=== PATIENT | male | born 1955 | race Two or more races ===

== ENCOUNTER → 2017-12-21 | Emergency (ER) | payer MEDICAID ==
[~2017-12-21] VITALS: Ht 170.2 cm; Wt 86.2 kg
[~2017-12-21] MED LIST: FUROSEMIDE40 MG ORAL; Morphine Sulfate 4mg/ml Inj (IV USE ONLY) IVP ONE; SPIRONOLACTONE100 MG ORAL; cefTRIAXone 1 GM in NS 55 ML IVPB ONE
[2017-12-21 22:27] VITALS: BP 113/60
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
[2017-12-21 23:09] LABS: EOSINOPHILS % (AUTO) 4.9 % (0.0-3.0); HEMATOCRIT 28.8 % (42.0-52.0); HEMOGLOBIN 9.5 G/DL (14.2-18.0); LYMPHOCYTES % (AUTO) 18.5 % (20.0-45.0); MEAN CORPUSCULAR VOLUME 88 FL (80-99); MONOCYTES % (AUTO) 7.9 % (1.0-10.0); NEUTROPHILS % (AUTO) 66.7 % (45.0-75.0); PLATELET COUNT 284 K/UL (150-450); RED BLOOD COUNT 3.29 M/UL (4.70-6.10); RED CELL DISTRIBUTION WIDTH 17.4 % (11.6-14.8); WHITE BLOOD COUNT 6.5 K/UL (4.8-10.8)
[2017-12-21 23:19] LABS: BILIRUBIN, URINE 1+ (NEGATIVE); GLUCOSE, URINE (UA) NEGATIVE (NEGATIVE); KETONES,URINE NEGATIVE (NEGATIVE); LEUKOCYTE ESTERASE ,URINE 1+ (NEGATIVE); NITRITE,URINE NEGATIVE (NEGATIVE); PH,URINE 6 (4.5-8.0); PROTEIN,URINE 1+ (NEGATIVE); UROBILINOGEN,URINE 1 MG/DL (0.0-1.0)
[2017-12-21 23:22] LABS: INR 1.5 (0.9-1.1)
[2017-12-21 23:33] LABS: APPEARANCE,URINE SLIGHTLY CLOUDY; COLOR,URINE AMBER
[2017-12-21 23:37] LABS: ALANINE AMINOTRANSFERASE 149 U/L (12-78); ALBUMIN 2.3 G/DL (3.4-5.0); ALBUMIN/GLOBULIN RATIO 0.5 (1.0-2.7); ALKALINE PHOSPHATASE 357 U/L (46-116); ANION GAP 5 mmol/L (5-15); ASPARTATE AMINO TRANSFERASE 472 U/L (15-37); BILIRUBIN,TOTAL 2.1 MG/DL (0.2-1.0); BLOOD UREA NITROGEN 15 mg/dL (7-18); CALCIUM 7.2 MG/DL (8.5-10.1); CARBON DIOXIDE 27 MMOL/L (21-32); CHLORIDE 107 MMOL/L (98-107); CREATININE 1.1 MG/DL (0.55-1.30); POTASSIUM 4.2 MMOL/L (3.5-5.1); SODIUM 139 MMOL/L (136-145)
[2017-12-21 23:40] LABS: BILIRUBIN,DIRECT 1.1 MG/DL (0.0-0.3)
[2017-12-22 02:15] VITALS: BP 116/66
--- NOTE | 2017-12-22 11:23 | Diagnostic Imaging Report ---
Indication: Dyspnea Comparison: None A single view chest radiograph was obtained. Findings: Cardiomediastinal appearance is within normal limits for age. Pulmonary vascularity is appropriate. The diaphragmatic contour is smooth and costophrenic angles are sharp. No pleural effusions are identified. The bones are osteopenic. Impression: No acute findings
--- NOTE | 2017-12-22 11:24 | Diagnostic Imaging Report ---
Indication: Knee Pain 3 views of the left knee were obtained. Findings: Acute lateral tibial plateau fracture demonstrated. The fracture extends to the medial metaphysis there is a remnant of the growth plate. There is a joint effusion. The bones are osteopenic. IMPRESSION: Acute lateral tibial plateau fracture
--- NOTE | 2017-12-27 16:18 | Cardiology Report ---
APPROVED REPORT EKG Measurement Heart [id number] Normal sinus rhythm with sinus arrhythmia Cannot rule out Anterior infarct, age undetermined Abnormal ECG
--- NOTE | 2017-12-28 16:00 | Diagnostic Imaging Report ---
APPROVED REPORT CPT Code: 23135 Present Symptoms Lower Extremity Pain: Left LEFT LEG: Venous imaging reveals a patent deep venous system. There is no evidence of thrombus within the femoral, popliteal or tibial segments. The greater saphenous vein is also within normal limits. Doppler indicates normal spontaneous flow within these segments.
== END | disposition short-term general hospital (02) ==
LOC: EMR 22:21
DX: S82.142A Displaced bicondylar fracture of left tibia, initial encounter for closed fracture (principal); X58.XXXA Exposure to other specified factors, initial encounter; Y93.9 Activity, unspecified; Y92.9 Unspecified place or not applicable; R60.1 Generalized edema; L03.116 Cellulitis of left lower limb; N18.6 End stage renal disease; K70.30 Alcoholic cirrhosis of liver without ascites
CPT/HCPCS: 36415; 71045; 73562; 80053; 80307; 81001; 82248; 83605; 85025; 85610; 85730; 87040; 93005; 93971; 96365; 96375; 99285; J1940; J2270